=== PATIENT | male | born 1950 | race Caucasian/White ===

== ENCOUNTER → 2017-05-21 12:37 | Outpatient (CLI) | payer OTHER, SELFPAY ==
[2017-05-21 15:17] LABS: Cholesterol 154 mg/dL (200); High Density Lipoprotein 43 mg/dL; Triglycerides 185 mg/dL; Very Low Density Lipoprotein 37 mg/dL (5-40)
== END ==
PROVIDERS: Family Provider Family Medicine; PCP Family Medicine; Visit Provider Family Medicine
DX: E78.5 Hyperlipidemia, unspecified (principal)
CPT/HCPCS: 36415; 80061

== ENCOUNTER → 2017-06-12 11:54 | Outpatient (CLI) | payer OTHER, SELFPAY ==
[2017-06-12 12:21] LABS: Absolute Lymphocyte Count 1.74 X10^3/ul (0.83-4.51); Absolute Neutrophil Count 3.8 X10^3/uL (2.0-7.7); Basophil# 0.03 X10^3/uL; Basophil% 0.5 % (0-1); Eosinophil# 0.03 X10^3/uL; Eosinophils% 0.5 % (0-5); Hemoglobin 16.3 g/dl (13.0-16.5); Lymphocyte # 1.74 X10^3/ul (4.0); Lymphocyte % 28.4 % (19-41); Mean Corpuscular Hgb 30.1 pg (27.0-32.0); Mean Corpuscular Volume 88.6 fL (80-94); Mean Platelet Vol. 9.5 fl (6.2-12.0); Monocyte# 0.53 X10^3/uL; Monocyte% 8.7 % (0-10); Neutrophil # 3.78 X10^3/uL (2.7-7.7); Neutrophil % 61.7 % (47-70); Platelet Count 220 K/mm3 (150-450); RBC Distribution Width CV 12.4 % (11.6-14.6); RBC Distribution Width SD 40.3 fl (35.1-43.9); Red Blood Count 5.42 M/mm3 (4.6-6.2); White Blood Count 6.1 K/mm3 (4.4-11.0)
[2017-06-12 12:32] LABS: POSITIVE COUNT NO; POSITIVE DIFFERENTIAL NO; POSITIVE MORPHOLOGY NO
== END ==
PROVIDERS: Family Provider Family Medicine; PCP Family Medicine; Visit Provider Family Medicine
DX: R59.0 Localized enlarged lymph nodes (principal)
CPT/HCPCS: 36415; 85025

== ENCOUNTER → 2018-09-08 10:07 | Outpatient (CLI) | payer MEDICARE, SELFPAY ==
[2018-09-08 09:43] VITALS: BMI 29.8
[2018-09-08 12:25] LABS: Hematocrit 47.9 % (40-54); Hemoglobin 15.7 g/dL (13.0-16.5); Mean Corp Hgb Conc 32.8 g/dL (32-36); Mean Corpuscular Hgb 29.5 pg (27.0-32.0); Mean Corpuscular Volume 89.9 fL (80-94); Mean Platelet Vol. 9.6 fl (6.2-12.0); Platelet Count 219 K/mm3 (150-450); RBC Distribution Width CV 12.8 % (11.6-14.6); RBC Distribution Width SD 42.1 fl (35.1-43.9); Red Blood Count 5.33 M/mm3 (4.6-6.2); White Blood Count 5.6 K/mm3 (4.4-11.0)
[2018-09-08 12:49] LABS: AST(SGOT) 21 U/L (15-37); Alanine Aminotransfer ALT/SGPT 54 U/L (16-61); Albumin, Serum 3.8 g/dL (3.2-5.0); Alkaline Phosphatase 96 U/L (45-117); Anion Gap 6 (5-15); BUN 15 mg/dL (7-18); BUN/Creat Ratio 15.2 RATIO (10-20); Calcium,Total 9.3 mg/dL (8.5-10.1); Chloride 106 mmol/L (98-107); Cholesterol 147 mg/dL (200); Creatinine, Serum 0.99 mg/dL (0.70-1.30); EST Glomerular Filtration Rate 81 mL/min (>60); Est Glom Filt Rate - Afr Amer 97 mL/min (>60); Globulin 3.7 g/dL (2.2-4.2); Glucose 91 mg/dL (74-106); High Density Lipoprotein 46 mg/dL; PSA,Total - Annual Screen 0.68 ng/mL (0.00-4.00); Potassium 4.5 mmol/L (3.5-5.1); Protein, Total 7.5 g/dL (6.4-8.2); Sodium Level 143 mmol/L (136-145); Thyroid Stim Hormone (TSH) 2.23 uIU/mL (0.358-3.74); Triglycerides 134 mg/dL; Very Low Density Lipoprotein 27 mg/dL (5-40)
== END ==
PROVIDERS: Family Provider Family Medicine; PCP Family Medicine; Visit Provider Nurse Practitioner Family
DX: Z00.00 Encounter for general adult medical examination without abnormal findings (principal); E78.5 Hyperlipidemia, unspecified; Z12.5 Encounter for screening for malignant neoplasm of prostate
CPT/HCPCS: 36415; 80053; 80061; 84153; 84443; 85027; G0103

== ENCOUNTER → 2019-09-09 10:35 | Outpatient (CLI) | payer MEDICARE, OTHER, SELFPAY ==
[2019-09-09 10:11] VITALS: BMI 29.8
[2019-09-09 13:05] LABS: ALB/GLOB Ratio 1.2 RATIO (0.9-2.4); AST(SGOT) 24 U/L (15-37); Alanine Aminotransfer ALT/SGPT 55 U/L (16-61); Albumin, Serum 4.2 g/dL (3.2-5.0); Alkaline Phosphatase 85 U/L (45-117); Anion Gap 3 (5-15); BUN 18 mg/dL (7-18); BUN/Creat Ratio 19.4 RATIO (10-20); Calcium,Total 9.3 mg/dL (8.5-10.1); Chloride 108 mmol/L (98-107); Cholesterol 152 mg/dL (200); Creatinine, Serum 0.93 mg/dL (0.70-1.30); EST Glomerular Filtration Rate 87 mL/min (>60); Est Glom Filt Rate - Afr Amer 105 mL/min (>60); Globulin 3.4 g/dL (2.2-4.2); Glucose 93 mg/dL (74-106); High Density Lipoprotein 44 mg/dL; PSA,Total - Annual Screen 0.72 ng/mL (0.00-4.00); Potassium 4.3 mmol/L (3.5-5.1); Protein, Total 7.6 g/dL (6.4-8.2); Sodium Level 140 mmol/L (136-145); Triglycerides 107 mg/dL; Very Low Density Lipoprotein 21 mg/dL (5-40)
== END ==
PROVIDERS: PCP Family Medicine; Referring Provider Family Medicine; Visit Provider Family Medicine
DX: E78.5 Hyperlipidemia, unspecified (principal); R35.0 Frequency of micturition
CPT/HCPCS: 36415; 80053; 80061; 84153; G0103

== ENCOUNTER → 2020-10-19 12:10 | Outpatient (CLI) | payer MEDICARE, OTHER, SELFPAY ==
[2020-10-19 15:48] LABS: ALB/GLOB Ratio 1.1 RATIO (0.9-2.4); AST(SGOT) 27 U/L (15-37); Alanine Aminotransfer ALT/SGPT 57 U/L (16-61); Alkaline Phosphatase 82 U/L (45-117); Anion Gap 2 (5-15); BUN 15 mg/dL (7-18); BUN/Creat Ratio 16.9 RATIO (10-20); Calcium,Total 9.6 mg/dL (8.5-10.1); Chloride 108 mmol/L (98-107); Cholesterol 130 mg/dL (200); Creatinine, Serum 0.89 mg/dL (0.70-1.30); EST Glomerular Filtration Rate 91 mL/min (>60); Est Glom Filt Rate - Afr Amer 110 mL/min (>60); Globulin 3.7 g/dL (2.2-4.2); Glucose 93 mg/dL (74-106); High Density Lipoprotein 46 mg/dL; PSA,Total- Diagnostic 0.84 ng/mL (0.0-4.0); Potassium 4.1 mmol/L (3.5-5.1); Protein, Total 7.7 g/dL (6.4-8.2); Sodium Level 139 mmol/L (136-145); Triglycerides 115 mg/dL; Very Low Density Lipoprotein 23 mg/dL (5-40)
== END ==
PROVIDERS: PCP Family Medicine; Referring Provider Family Medicine; Visit Provider Family Medicine
DX: E78.5 Hyperlipidemia, unspecified (principal); N40.0 Benign prostatic hyperplasia without lower urinary tract symptoms
CPT/HCPCS: 36415; 80053; 80061; 84153

== ENCOUNTER → 2021-12-04 | Outpatient (CLI) | payer MEDICARE, OTHER, SELFPAY ==
[2021-12-04 16:09] LABS: ALB/GLOB Ratio 1.2 RATIO (0.9-2.4); AST(SGOT) 29 U/L (15-37); Alanine Aminotransfer ALT/SGPT 42 U/L (16-61); Albumin, Serum 4.1 g/dL (3.2-5.0); Alkaline Phosphatase 81 U/L (45-117); Anion Gap 6 (5-15); BUN 19 mg/dL (7-18); BUN/Creat Ratio 21.2 RATIO (10-20); Calcium,Total 9.8 mg/dL (8.5-10.1); Chloride 107 mmol/L (98-107); Cholesterol 130 mg/dL (200); EST Glomerular Filtration Rate 89 mL/min (>60); Est Glom Filt Rate - Afr Amer 108 mL/min (>60); Globulin 3.5 g/dL (2.2-4.2); Glucose 86 mg/dL (74-106); High Density Lipoprotein 46 mg/dL; Potassium 4.1 mmol/L (3.5-5.1); Protein, Total 7.6 g/dL (6.4-8.2); Sodium Level 141 mmol/L (136-145); Triglycerides 88 mg/dL; Very Low Density Lipoprotein 18 mg/dL (5-40)
== END | disposition home or self-care (01) ==
LOC: BIMLAB 14:28
PROVIDERS: PCP Family Medicine; Referring Provider Family Medicine; Visit Provider Family Medicine
DX: E78.5 Hyperlipidemia, unspecified (principal)
CPT/HCPCS: 36415; 80053; 80061

== ENCOUNTER → 2023-02-26 | Outpatient (CLI) | payer MEDICARE, OTHER, SELFPAY ==
--- OUTSIDE RECORDS SUMMARY | 2023-02-26 11:33 | XMS RPT_ITS | CCD ---
Author Name Unknown Address [facility] [place] [id number] Organization [facility] Results Test Name Value Interpretation Reference Range Facil ity Procedures Date Procedure Procedure Detail Performing Clinician Start: 03-27-2020 Follow-up visit Summary Purpose Family History No Family History Records FoundNo Family History Records Found Advance Directives No Advanced Directives Records FoundNo Advanced Directives Records Found Procedure Findings Note HNO ID: [id number] Author: Karin Momin Service: Gastroenterology Author Type: Physician Type: Brief Op Note Filed: 03/22/2019 12:01 PM Note Text: BRIEF OPERATIVE NOTE PATIENT NAME: Raymundo Hurst LOG ID: [id number] Surgery Date: 03/22/2019 Surgeon(s) and Community Youth Secretary(s): Demar Momin MD -Primary Procedure(s): Procedure(s) (LRB): COLONOSCOPY WITH BIOPSY (N/A) Anesthesia: Procedural Sedation Findings: Ascending colon polyp Estimated Blood Loss: Minimal Specimens: Ascending colon polyp Preop Diagnosis: History of colon polyps [Z86.010] Postop Diagnosis: History of colon polyps [Z86.010] SIGNATURE: Demar Momin MD DATE: March 22, 2019 TIME: 12:00 PM Additional Source Comments (unrecognized sect ion and content) No Status Records FoundNo Status Records Found INFORMATION SOURCE (unrecogn ized section and content) DATE CREATED AUTHOR AUTHOR'S ORGANIZ ATION 03/27/2020 [employer] FOR RECORDS PERTAINING TO PATIENTS WHO ARE OR HAVE BEEN ENROLLED IN A CHEMICAL DEPENDENCY/SUBSTANCEABUSE PROGRAM, SOME INFORMATION MAY BE OMITTED. This clinical summary was aggregated from multiple sources. Caution should be exercised in using it in the provision of clinical care. This summary normalizes information from multiple sources, and as a consequence, information in this document may materially change the coding, format and clinical context of patient data. In addition, data may be omitted in some cases. CLINICAL DECISIONS SHOULD BE BASED ON THE PRIMARY CLINICAL RECORDS. [facility] [employer] [facility]. provides no warranty or guarantee of the accuracy or completeness of information in this document.
[2023-02-26 13:19] LABS: ALB/GLOB Ratio 0.9 RATIO (0.9-2.4); AST(SGOT) 21 U/L (15-37); Alanine Aminotransfer ALT/SGPT 58 U/L (16-61); Albumin, Serum 3.6 g/dL (3.2-5.0); Alkaline Phosphatase 78 U/L (45-117); Anion Gap 3 (5-15); BUN 18 mg/dL (7-18); BUN/Creat Ratio 18.1 RATIO (10-20); Calcium,Total 10.4 mg/dL (8.5-10.1); Chloride 110 mmol/L (98-107); Cholesterol 123 mg/dL (200); EST Glomerular Filtration Rate 79 mL/min (>60); Est Glom Filt Rate - Afr Amer 95 mL/min (>60); Glucose 99 mg/dL (74-106); High Density Lipoprotein 51 mg/dL; Potassium 4.4 mmol/L (3.5-5.1); Protein, Total 7.6 g/dL (6.4-8.2); Sodium Level 141 mmol/L (136-145); Triglycerides 76 mg/dL; Very Low Density Lipoprotein 15 mg/dL (5-40)
== END | disposition home or self-care (01) ==
LOC: BIMLAB 11:13
PROVIDERS: PCP Family Medicine; Visit Provider Family Medicine
DX: Z00.00 Encounter for general adult medical examination without abnormal findings (principal); E78.5 Hyperlipidemia, unspecified
CPT/HCPCS: 36415; 80053; 80061

== ENCOUNTER → 2024-03-02 | Outpatient (CLI) | payer MEDICARE, OTHER, SELFPAY ==
[2024-03-02 12:46] LABS: ALB/GLOB Ratio 1.1 RATIO (0.9-2.4); AST(SGOT) 29 U/L (15-37); Alanine Aminotransfer ALT/SGPT 66 U/L (16-61); Alkaline Phosphatase 89 U/L (45-117); Anion Gap 5 (5-15); BUN 14 mg/dL (7-18); BUN/Creat Ratio 14.5 RATIO (10-20); Chloride 106 mmol/L (98-107); Cholesterol 136 mg/dL (200); Creatinine, Serum 0.97 mg/dL (0.70-1.30); EST Glomerular Filtration Rate 81 mL/min (>60); Est Glom Filt Rate - Afr Amer 98 mL/min (>60); Globulin 3.6 g/dL (2.2-4.2); Glucose 90 mg/dL (74-106); High Density Lipoprotein 52 mg/dL; PSA,Total- Diagnostic 1.05 ng/mL (0.0-4.0); Potassium 4.3 mmol/L (3.5-5.1); Protein, Total 7.6 g/dL (6.4-8.2); Sodium Level 140 mmol/L (136-145); Triglycerides 105 mg/dL; Very Low Density Lipoprotein 21 mg/dL (5-40)
== END | disposition home or self-care (01) ==
LOC: BIMLAB 11:23
PROVIDERS: PCP Family Medicine; Referring Provider Family Medicine; Visit Provider Family Medicine
DX: R35.0 Frequency of micturition (principal); E78.5 Hyperlipidemia, unspecified; I10 Essential (primary) hypertension
CPT/HCPCS: 36415; 80053; 80061; 84153

== ENCOUNTER 2024-04-05 09:39 | Day surgery (SDC) | payer MEDICARE, OTHER, SELFPAY ==
--- NOTE | 2024-03-30 08:44 | EKG12_ITS ---
Test Reason : PRE OP Blood Pressure : */* mmHG Vent. Rate : 74 BPM Atrial Rate : 74 BPM P-R Int : 140 ms QRS Dur : 84 ms QT Int : 398 ms P-R-T Axes : 65 88 55 degrees QTcB Int : 441 ms Normal sinus rhythm Normal ECG Confirmed by Viktor Saleem ([id number]), order editor SIMEON SPANGLER ([id number]) on 03/31/2024 6:54:54 AM Referred By: Georgia Newman Confirmed By: Viktor Saleem
[2024-04-05] VITALS (8 sets, daily range): BP systolic 119–156; BP diastolic 53–79; PULSE 57–67; RESP 16–20; TEMP 36.1–36.6; O2SAT 94–99; BMI 28.2
[2024-04-05] MEDS: 0.9% Normal Saline (1000mL) 1,000 ML 15 ML IV (10:26)
--- NOTE | 2024-04-05 10:29 | PCM.PRE.AN2 ---
ASA Classification* ASA Classification ASA Classification: 2 Assessment & Plan Anesthesia* Anesthesia Assessment Anesthesia Assessment: Discussed sedation and/or anesthesia options, risks, benefits, and alternatives with patient/parents/legal guardian/POA. Questions invited. The patient/parents/legal guardian/POA seems to understand and agrees to proceed with anesthesia plan. Reviewed the physical assessment, medical history, allergy history and patient home medications list prior to surgery/procedure/anesthetic and documented any changes. Performed airway and anesthesia risk assessments. Anesthesia Type Anesthesia Type: General Anesthesia Focused Assessment* Airway Assessment Mouth opens: >3 cm Mallampati Score: II Focused Labs Anesthesia Preop lab: CBC WBC 5.6 K/mm3 (4.4-11.0) 09/08/18 10:09/08/18 RBC 5.33 M/mm3 (4.6-6.2) 09/08/18 10:20 09/08/18 Hgb 15.7 g/dL (13.0-16.5) 09/08/18 10:20 09/08/18 Hct 47.9 % (40-54) 09/08/18 10:20 09/08/18 Plt Count 219 K/mm3 (150-450) 09/08/18 10:20 09/08/18 CHEMISTRY Potassium 4.3 mmol/L (3.5-5.1) 03/02/24 11:23 03/02/24 Sodium 140 mmol/L (136-145) 03/02/24 11:23 03/02/24 BUN 14 mg/dL (7-18) 03/02/24 11:23 03/02/24 Creatinine 0.97 mg/dL (0.70-1.30) 03/02/24 11:23 03/02/24 Glucose 90 mg/dL (74-106) 03/02/24 11:03/02/24 TSH 2.23 uIU/mL (0.358-3.74) 09/08/18 10:20 09/08/18 COAG Pre-Assessment Diagnosis/Proposed Procedure Planned Operative Procedure(s): OPEN UMBILICAL HERNIA REPAIR WITH MESH AND RIGHT UPPER NECK LIPOMA Anesthesia History 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 When Was Last Pacemaker Check QUESTION #4 FULL TEXT: You/Your Family Experience fever (hyperthermia) with Anesthesia Last Oral Intake Last Oral intake: Last Oral Intake NPO since Meds taken in AM with sips of water? Meds patient instructed to take am of surgery PONV PONV - hvac maintenance technician: PONV - hvac maintenance technician Female No 03/22/24 15:04 HX of Motion Sickness No 03/22/24 15:04 HX of N/V After Surgery No 03/22/24 15:04 Non-Smoker Yes 03/22/24 15:04 Duration of Surgery greater Yes 03/22/24 15:04 than 60 minutes Number of Risk Factors 2 03/22/24 15:04 PONV Score Moderate Risk 03/22/24 15:04 Height & Weight Height & Weight: Anesthesia: Height & Weight Height 5 ft 6 in 03/12/24 13:13 Respiratory Assessment Respiratory Assessment - hvac maintenance technician: Respiratory Tract Infection Hx - hvac maintenance technician Hx Respiratory Tract Infection No 03/22/24 15:04 STOP Sleep Apnea STOP Sleep Apnea - hvac maintenance technician: STOP Sleep Apnea - hvac maintenance technician Hx Hypertension Yes: CONTROLLED WITH MED 03/22/24 15:04 Hx Sleep Apnea Yes 03/22/24 15:04 CPAP Yes 03/22/24 15:04 BIPAP No 03/22/24 15:04 Do you snore loudly (louder than talking or can be heard Do you often feel tired/ fatigued/ sleepy during daytime? Has anyone observed you stop breathing during sleep? STOP Results Positive 03/22/24 15:04 QUESTION #5 FULL TEXT : Do you snore loudly (louder than talking or can be heard through closed doors)? Tobacco Use History Tobacco Use History - hvac maintenance technician: Tobacco Use History - hvac maintenance technician Tobacco Use Smoking Status Never smoker 03/22/24 15:04 Hx Tobacco Use No 03/22/24 15:04 Years Smoking Packs Smoked per Day Smoking Cessation Date was within the last 15 years Hx Smoking Cessation Date Hx Smoking Cessation Counseling Hematologic Medial History Hematologic Hx - hvac maintenance technician: Hematologic Medical Hx - retail assistant Hx of Blood Transfusion No 03/22/24 15:04 Hx of Transfusion in last 3 No 03/22/24 15:04 Months Date of Last Transfusion (if within last 3 months) Ever experience any problems No 03/22/24 15:04 with transfusion(s)? Specify any problems Hx of Preganancy in last 3 N/A 03/22/24 15:04 Months Nurse Filling Out Transfusion DSCHRIBER 03/22/24 15:04 & Questions: Date: 03/22/24 03/22/24 15:04 Time: 15:05 03/22/24 15:04 Patient unable to answer at this time (ie. confused, unrespo /Reproduction History /Reproductive History - hvac maintenance technician: /Reproductive Hx- hvac maintenance technician Hx Now No 03/22/24 15:04 Gestational Age (in weeks): EDC: Hx Hx Para Hx Section SAB No 03/22/24 15:04 Active Medications Active Medications: Current Medications Generic Name Dose Route Start Last Admin Trade Name Freq PRN Reason Stop Dose Admin Cefazolin Sodium 2 gm/ N/A 20 mls @ 400 mls/hr 04/05/24 11:30 IV 04/05/24 11:32 PREOP ONE Sodium Chloride 1,000 mls @ 15 mls/hr 04/05/24 09:45 04/05/24 10:26 IV 04/10/24 23:04 15 mls/hr .Q48H LIAT Administration Protocol PFSH Medical History Loss of hearing Wears glasses Gastric reflux CPAP (continuous positive airway pressure) dependence Non-smoker Hypertension History of stress test Hyperlipemia Home Medications ?Medication ?Instructions ?Recorded ?Last Taken ?Type omega 7-neq-ltn-fish oil 900 3 cap PO DAILY 05/21/17 04/04/24 History mg-1,400 mg capsule,delayed release (Fish Oil) doxycycline hyclate 100 mg capsule 100 mg PO DAILY #90 caps 12/17/23 04/04/24 Rx atorvastatin 20 mg tablet 20 mg PO QHS 03/22/24 04/04/24 History lisinopril 10 mg tablet 10 mg PO QHS 03/22/24 04/04/24 History Allergy/AdvReac Type Severity Reaction Status Date / Time No Known Allergies Allergy Verified 04/05/24 10:23 Family History Father Cancer prostate Hypertension Hyperlipemia CVA (cerebral vascular accident) Mother Cancer Hypertension Hyperlipemia Surgical History Hx of colonoscopy History of amputation of left arm above elbow Social History Smoking Status: Never smoker second hand exposure: No alcohol intake: never substance use type: does not use caffeine: Yes what type of physical activity do you participate in: walking frequency: daily seatbelt use: always Review of Systems (Anesthesia) ROS Narrative System reviewed and no additional complaints, except as documented.
--- NOTE | 2024-04-05 10:30 | PCM.HP.BLA ---
History and Physical Date of Admission: 04/05/24 Date of Service: 03/12/24 MR#: [id number] Acct: [id number] Name: OBDULIO HURST Rep #: [id number] : 1950 Provider: Dr. Georgia Newman MD Age/Sex: 73/M Location: [facility] Status: Signed Intake Vital Signs 03/02/2509:34 03/12/2512:13 Height 5 ft 6 in 5 ft 6 in Weight: 184 lb 8 oz 184 lb BMI 29.7 29.7 BP 160/82 H 138/74 H Blood Pressure Location Lt brachial Rt brachial Position Sitting Sitting Respiration 16 17 Pulse 69 70 Pulse Source Monitor Monitor Temp 96.9 F L 96.1 F L Temp Source Temporal Temporal Pulse Oximetry (%) 96 97 Oxygen Delivery Method room air room air Intake Visit Reasons: UMBILICAL HERNIA Chief Complaint: umbilical hernia/neck lipoma Is patient in pain?: No Allergies No Known Allergies Allergy (Verified 03/12/24 13:15) Medications ?Medication ?Instructions ?Recorded ?Confirmed ?Type omega 4-nof-ill-fish oil 900 cap PO 05/21/17 03/12/24 History mg-1,400 mg capsule,delayed release (Fish Oil) atorvastatin 20 mg tablet 20 mg PO DAILY #90 TABLETS 11/18/23 03/12/24 Rx doxycycline hyclate 100 mg capsule 100 mg PO DAILY #90 caps 12/17/23 03/12/24 Rx lisinopril 10 mg tablet 10 mg PO QDAY #90 tabs 03/02/24 03/12/24 Rx Have you fallen in the past year?: No PFSH Medical History (Updated 03/12/24 @ 13:[address] Georgia Newman MD) Normal colonoscopy Hyperlipemia Surgical History History of amputation of left arm above elbow Family History Father Cancer prostate Hypertension Hyperlipemia CVA (cerebral vascular accident)Mother Cancer Hypertension Hyperlipemia Social History Smoking Status: Never smoker second hand exposure: No alcohol intake: never substance use type: does not use caffeine: Yes what type of physical activity do you participate in: walking frequency: daily seatbelt use: always HPI HPI HPI: 73-year-old male presents due to enlarging right upper neck subcutaneous mass likely lipoma. Patient was seen in 2018 and it was 2 x 2 cm at that time. Patient also has had more recent issues with umbilical hernia which he states he has had for several years but currently its painful if he leans against something. Patient has been tolerating diet, having bowel function. Patient is a rebolledo and is hoping to get it done during his less busy season. Patient denies any nausea or vomiting. Patient states he has colonoscopies about every 5 years at [facility]. Patient will be scheduling his next colonoscopy in the near future. ROS General General: Yes fatigue; No weight change, appetite, colon cancer, breast cancer or weakness HEENT HEENT: No difficulty swallowing, eye injury, eye surgery, swollen glands or hoarseness Endo Endocrine: No thyroid disease, diabetes mellitus, thyroid cancer, Hair loss, heat intolerance or cold intolerance Skin Skin: No rash or changing moles Musc Musculoskeletal: Yes back problems and arthritis; No rheumatoid arthritis, gout or joint pain Cardio Cardiovascular: Yes high blood pressure; No murmur, pacemaker, heart disease, atrial fibrillation, heart attack, heart stent, palpitations, shortness of breat with exertion or chest pain Psych Psychiatric: No depression, anxiety or hearing voices Resp Respiratory: Yes shortness of breath, Yes sleep apnea, No cough, No COPD, No asthma, No emphysema and No wheezing Gastro Gastrointestinal: No abdominal pain, No nausea or vomiting, No diarrhea, No constipation, No blood in stool, No acid reflux, No hemorrhoids, No ulcers, No gallbladder problem and No black,tarry stools Wayne Hematologic: No blood thinners, No blood disorders, No bleeding, No anemia and No blood clots Neuro Neurologic: No system reviewed and no additional complaints, except as documented, No as per HPI, No abnormal gait, No abnormal hearing, No abnormal movements, No abnormal speech, No behavioral changes, No burning sensations, No confusion, No convulsions, No disequilibrium, No dizziness, No localized weakness, No frequent falls, No headache(s), No lack of coordination, No loss of vision, No memory loss, No numbness, No other visual disturbances, No radicular pain, No restless legs, No sensory deficit, No syncope, No tingling, No tremor(s), No weakness and No other Exam Const General: cooperative, healthy appearing, comfortable and no acute distress HENMA Head: normocephalic and atraumatic Neck Other: Right posterior upper neck 4 x 4 centimeter lipoma increased in size from 2018 where it was 2 x 2 cm Resp Effort & Inspection: normal respiratory effort Cardio Rate: regular rate GI Inspection: non-distended Palpation: soft, hernia umbilical (Incarcerated, no change in overlying skin) and tender (Only when attempting to reduce the hernia) Skin General: no rashes or lesions noted Neuro General: CN's II-XI intact bilaterally Extrem Other: Left upper extremity amputated due to previous accident Psych Mental Status: mental status grossly normal Attitude: cooperative Assessment and Plan Assessment and Plan (1) Lipoma of neck: Status: Acute Comment: right upper (2) Incarcerated umbilical hernia: Status: Acute Plan Due to increase in size of the likely lipoma of the right upper neck will plan for excision and also incarcerated umbilical hernia repair with mesh due to the patient's diastases. Plan to do an excision of right upper neck lipoma and umbilical herniorrhaphy with mesh. Reviewed the procedure with the patient including the risks, including but not limited to infection, bleeding, injury to the small bowel, and recurrence. Patient is had no further questions this time. Georgia Newman M.D. Pager: [phone] [facility] [address] [place] [address], [address] [place] [address] Office: [phone] Coding Level of Care Code Off vis,new,level 3 Diagnoses Lipoma of neck D17.0 Incarcerated umbilical hernia K42.0 Clinical Quality Measures Falls Risk Screening/Assistive Devices Have you fallen in the past year?: No 03/12/24 3939 <Electronically signed by Georgia Newman MD> Date Georgia Newman MD
[2024-04-05] MEDS: Cefazolin 2 GM in Syringe IV (11:15)
--- NOTE | 2024-04-05 11:30 | LIP_PTH ---
PATIENT: OBDULIO HURST LOC: [facility] U#:[id number] AGE/SX: 73/M ROOM: RE04/05/[address]: Dr. Georgia Newman MD : 1950 BED: DIS: 04/05/2024 SPEC #: [id number] RECD: 04/05/24 13:35 STATUS: KEVIN REFabien #: [id number] CESILIA: 04/05/24 11:[address]: Georgia Newman DEPT: SURGICAL PATHOLOGY RECD BY: Juan Hall ENTERED: 04/05/24 13:48 SP TYPE: LIPOMA OTHR DR: Dr. Juan Jose Wall, DO Tissues: Soft tissues, NOS Procedures: Surgery Specimen Level III HEADER OPERATION: Hernia, umbilical repair with mesh and right upper neck lipoma PRE-OP DIAGNOSIS: Lipoma of neck, right upper incarcerated umbilical hernia TISSUE SUBMITTED: Right upper neck lipoma MICROSCOPIC DIAGNOSIS Lipoma: Mature adipose tissue consistent with lipoma. CONCHIS. 04/06/2024 MICROSCOPIC DESCRIPTION Slides are reviewed. GROSS DESCRIPTION Received in fixative is one container labeled with the patient name and designated lipoma. The specimen consists of an irregular piece of adipose tissue measuring 4.5 x 4 x 2 cm. The external surface is inked. Sections reveal yellow adipose cut surfaces without areas of hemorrhage, necrosis or cystic degeneration. Adult Specialist sections are submitted in three cassettes. 04/05/2024 TC:1 CPT:82186
--- NOTE | 2024-04-05 12:01 | PCM.OPRPT ---
Operative Report (Standard) Operative Information Date of Procedure: 04/05/24 Pre-Operative Diagnosis: Incarcerated umbilical hernia, neck lipoma Post-Operative Diagnosis: Same Surgery/Procedure Performed: Pressure umbilical hernia repair with mesh, excision of right upper neck lipoma merchandise carrier: Yes Raftsman: Alis Bettencourt Tasks completed by preschool teacher's assistant: Opening & closing Type of Anesthesia: General/Supplemental RN Documented Start/Stop Times: Operation Date: 04/05/24 11:30 Case Time Into Pre-Op 04/05/24 09:42 Anesthesia Start 04/05/24 11:15 Into Room 04/05/24 11:15 Procedure Start 04/05/24 11:31 Procedure End 04/05/24 12:41 Anesthesia End 04/05/24 12:44 Out of Room 04/05/24 12:44 Into Recovery 04/05/24 12:45 Into Phase II Recovery 04/05/24 13:22 Out of Recovery 04/05/24 13:22 Out of Phase II 04/05/24 14:40 Procedure Start Time: 11:31 Procedure Stop Time: 12:41 Select all DRAINS/GRAFTS/IMPLANTS that apply: Prosthetic device Prosthetic device details: Ventralex ST hernia patch small 4.3 cm, Lot [id number] ref [id number] Special Medications: Ancef 2 g IV x 1 Estimated Blood Loss: <10 cc Specimen collected: Yes Description of specimen(s) removed: Right upper neck lipoma Description of surgery: Patient was brought into the room placed supine on the operating table. Correct patient, procedure, site, positioning, special, was verified prior to procedure. General anesthesia was induced. The abdomen was prepped draped in usual sterile fashion. A curvilinear incision was made below the umbilicus with a 15 blade scalpel. This was deepened with electrocautery. A hemostat was used to go around the stalk of the umbilicus and Metzenbaum scissors was used to carefully divide the hernia sac from the skin of the umbilicus. The fascia around the hernia defect was cleared and the hernia defect measured 1.4 x 1.[address] hernia patch 4.3 cm was selected. This was secured laterally at its tails with 0 Prolene horizontal mattress suture. The hernia defect was closed with a [id number] 0 Prolene. The wound was irrigated with saline. Hemostasis was assured. The skin of the umbilicus was secured to the fascia using 3-0 Vicryl suture interrupted. The incision was closed with 3-0 Vicryl subdermal interrupted sutures and the skin was closed with interrupted 4-0 Monocryl sutures. Steri-Strips and Tegaderm and OpSite were placed over the incision once sterile cotton balls were placed in the umbilicus. Patient was repositioned in left lateral decubitus position for excision of right upper neck lipoma with appropriate padding. The area was prepped usual sterile fashion with chlorhexidine. A horizontal line was made along the lines of longer hands in the upper neck with a 15 blade scalpel. This was deepened with electrocautery. Lipoma was removed from surrounding tissue was 3.5 x 2 x 1.5 cm in size. Hemostasis was achieved with electrocautery. Incision was closed with subdermal interrupted 2-0 Vicryl sutures and skin was closed with Monocryl and Dermabond. Patient was extubated. Patient tolerated procedure well and was taken to the postanesthesia care unit in stable condition. Surgical Findings: See operative report Complications Complications: No
[2024-04-05] MEDS: Bupivacaine Mpf 0.5% 30 ML VIAL (12:18)
--- NOTE | 2024-04-05 12:35 | EX.PCM.DISCH ---
Discharge Instructions Diet Discharge Diet: Light diet - advance as tolerated Activity May shower in (days): 5 (Keep umbilical dressing clean dry and intact for 5 days. Okay to tape off with a Ziploc bag to shower. Or lower shower and upper sponge bath. Okay to get neck incision wet.) Lifting Restrictions: no lifting >20 lbs x 2 wks, no strenuous exercise for 4 wks Additional Activity Instructions:: - Dressing / Incision Call your doctor if your incision/area has: Continuous Slow Oozing, Sudden Increased Bleeding, Increased Pain/ Swelling, Increased Redness, Foul Smelling Discharge and Swelling at the incision site Call your doctor if you observe: Fever of 101 or Higher Remove Dressing in: 5 days (After 5 days okay to remove surgical dressing. Place cotton ball or rolled up gauze in bellybutton and retape daily for 2 more days.) Cleanse incision/area with: Do not get Incision Wet (for 5 days) Additional Dressing/Incision Instructions:: Steri-Strips will fall off in 7 to 10 days from umbilical incision, if they do not fall off okay to remove after 10 days. Right posterior neck incision Dermabond when she used this may start to peel in 5 days?okay to get neck incision wet. Follow Up Care Please Follow Up With: Georgia Newman MD When: Call the office for a follow-up appointment 2 weeks; after 5 PM and on the weekends call [phone] with any concerns. Test Results: Test results from this visit will be discussed in further detail at your follow-up appointment, if applicable. Discharge Plan Admission Attending Provider: Georgia Newman Primary Care Provider: Juan Jose Wall Instructions Print Language: Setswana Discharge Orders/Prescriptions Prescriptions: New oxycodone 5 mg capsule 5 mg PO Q6H PRN (Reason: pain) 3 Days Qty: 7 0RF Continued Fish Oil 900-1,400 mg capsule,delayed release(DR/EC) 3 cap PO DAILY atorvastatin 20 mg tablet 20 mg PO QHS lisinopril 10 mg tablet 10 mg PO QHS doxycycline hyclate 100 mg capsule 100 mg PO DAILY Qty: 90 1RF Other Ambulatory Orders: CBC-Complete Blood Cnt No Diff (Routine) Timeframe: 20240330 Facility: [facility] - Location: Laboratory Ordered By: Dr. Bony Vaughn Referrals / Follow Up: Juan Jose Wall DO [Primary Care Provider] - Disposition Disposition (needs filled in before D/C Order can be placed): Home, Self Care
--- NOTE | 2024-04-05 12:50 | PCM.POST.ANE ---
Anesthesia: Postop Eval I Current Vital Signs Temperature: 97.9 F Pulse Rate: 67 Blood Pressure: 156/79 Respiratory Rate: 20 Pulse Ox: 96 Assessment Airway patent: Yes Spontaneous unlabored respirations: Yes nausea: No Vomiting: No Anesthesia Complication: No Fluid Hydration Crystalloid volume administer (ml): 900 Total IV fluid infused: 900 Progress Note Anesthesia document: Postop Eval 1 completed: Yes
--- NOTE | 2024-04-05 12:58 | POSTOPAN2_ITS ---
Anesthesia Postop Eval I Sum Postop Eval Completion status Anesthesia document: Postop Eval 1 completed: Yes Anesthesia Postop Eval I Summary Anesthesia Postop Eval I Summary: Anesthesia Postop Eval I: Assessment Summary Airway patent Yes 04/05/24 12:50 IMMIGRATION [email or web address] Spontaneous unlabored Yes 04/05/24 12:50 IMMIGRATION [email or web address] respirations Mental status nausea No 04/05/24 12:50 IMMIGRATION [email or web address] Vomiting No 04/05/24 12:50 IMMIGRATION [email or web address] Anesthesia Postop Eval I: Fluid Summary Crystalloid volume administer 900 04/05/24 12:50 IMMIGRATION [email or web address] (ml) Colloids volume administered ( ml) Blood Product volume administered (ml) Total IV fluid infused 900 04/05/24 12:50 IMMIGRATION [email or web address] Anesthesia Postop Eval I: Summary Notes Anesthesia Complication No 04/05/24 12:50 IMMIGRATION [email or web address] Anesthesia Complication Comment: Post-operative progress note Anesthesia: Postop Eval II Evaluation Mental status: Awake Pain Level: 0 nausea: No Vomiting: No
--- NOTE | 2024-04-05 12:58 | PCM.POSTANE2 ---
Anesthesia Postop Eval I Sum Postop Eval Completion status Anesthesia document: Postop Eval 1 completed: Yes Anesthesia Postop Eval I Summary Anesthesia Postop Eval I Summary: Anesthesia Postop Eval I: Assessment Summary Airway patent Yes 04/05/24 12:50 [email or web address] Spontaneous unlabored Yes 04/05/24 12:50 [email or web address] respirations Mental status nausea No 04/05/24 12:50 [email or web address] Vomiting No 04/05/24 12:50 [email or web address] Anesthesia Postop Eval I: Fluid Summary Crystalloid volume administer 900 04/05/24 12:50 [email or web address] (ml) Colloids volume administered ( ml) Blood Product volume administered (ml) Total IV fluid infused 900 04/05/24 12:50 [email or web address] Anesthesia Postop Eval I: Summary Notes Anesthesia Complication No 04/05/24 12:50 [email or web address] Anesthesia Complication Comment: Post-operative progress note Anesthesia: Postop Eval II Evaluation Mental status: Awake Pain Level: 0 nausea: No Vomiting: No
[2024-04-05] MEDS: Acetaminophen 500 MG Tablet 1000 MG PO (14:00)
== END 2024-04-05 14:40 | disposition home or self-care (01) ==
LOC: SDC 09:39 → AC 09:40
PROVIDERS: PCP Family Medicine; Referring Provider Surgery; Visit Provider Surgery
PROC: (CPT 21552; principal; 2024-04-05 11:15)
DX: D17.0 Benign lipomatous neoplasm of skin and subcutaneous tissue of head, face and neck (principal); K42.0 Umbilical hernia with obstruction, without gangrene; E78.5 Hyperlipidemia, unspecified; Z79.899 Other long term (current) drug therapy; Z89.222 Acquired absence of left upper limb above elbow
CPT/HCPCS: 21552; 49592; 00752; 88304; 93005; C1781; J2405